=== PATIENT | male | born 1935 | race Caucasian/White ===

== ENCOUNTER 2020-05-02 10:08 | Inpatient (IN) | payer BC, OTHER ==
[~2020-05-02] VITALS: Ht 172.7 cm; Wt 75.4 kg
[2020-05-02 11:50] LABS: Basophils # (auto) 0 10 ^3/uL (0-0.2); Basophils % (auto) 0.6 % (0.0-2.0); Eosinophils # (auto) 0.2 10 ^3/uL (0-0.8); Eosinophils % (auto) 3.2 % (0.0-7.0); Hematocrit 43.2 % (41.0-53.0); Hemoglobin 14.1 g/dL (13.5-17.5); Lymphocytes # (auto) 0.9 10 ^3/uL (0.4-5.4); Lymphocytes % (auto) 13.4 % (10.0-50.0); Mean Corpuscular Hemoglobin 31.9 pg (28.0-32.0); Mean Corpuscular Hgb Conc. 32.6 g/dL (32.0-36.0); Mean Corpuscular Volume 97.8 fL (80.0-100.0); Monocytes # (auto) 0.4 10 ^3/uL (0-1.3); Neutrophils # (auto) 5.3 10 ^3/uL (1.6-8.6); Neutrophils % (auto) 76.8 % (37.0-80.0); Platelet Count (auto) 204 10^3/uL (140-450); Red Blood Cells 4.42 10^6/uL (4.5-5.90); Red Cell Distribution Width 16.6 % (11.8-14.3); White Blood Cell 6.8 10^3/uL (4.4-10.8)
[2020-05-02 11:55] LABS: INR 1.06 (0.9-1.15); Partial Thromboplastin Time 27.2 sec (23.0-31.2)
[2020-05-02 12:02] LABS: Albumin 3.1 g/dL (3.4-5.0); Calcium 8.9 mg/dL (8.5-10.1); Potassium 4.4 mmol/L (3.5-5.1)
[2020-05-02 12:06] LABS: BUN/Creatinine Ratio 10.4; Bilirubin, Total 0.6 mg/dL (0.2-1.0); Total Protein 6.7 g/dL (6.4-8.2)
[2020-05-02 14:39] LABS: Urine Bacteria NONE SEEN /hpf (None Seen); Urine Blood Negative /uL (Negative); Urine Specific Gravity 1.005 (1.001-1.035); Urine WBC <1 /hpf (0 - 3)
[2020-05-02] MEDS ORDERED: SODIUM CHLORIDE 0.9% 1,000 ML IV ONE (15:30)
[2020-05-02] MEDS ORDERED: MORPHINE SULF INJ 2 MG/ML SYRINGE 1ML IV PRN ×2 (15:30→15:45)
[2020-05-02] MEDS ORDERED: NITROGLYCERIN 0.4 MG SL TAB SL PRN (15:30)
[2020-05-02] MEDS ORDERED: ACETAMINOPHEN 500 MG TAB PO PRN (15:45)
[2020-05-02] MEDS ORDERED: HYDROcodone-ACET 5/325MG TAB PO PRN (15:45)
[2020-05-02] MEDS ORDERED: ONDANSETRON HCL 4 MG/2 ML VIAL IV PRN (15:45)
[2020-05-02] MEDS ORDERED: FAMOTIDINE (10MG/ML) 2ML VL IV ONE (16:15)
[2020-05-02] MEDS ORDERED: methylPREDNISolone SOD SUCC 125 MG/2 ML VL IV ONE (16:15)
[2020-05-02] MEDS ORDERED: diphenhdrAMINE HCL 50 MG/1 ML VL IV ONE (16:15)
[2020-05-02] MEDS ORDERED: GABA100C9 PO (18:33)
[2020-05-02] MEDS ORDERED: LOVA40TA72 PO (18:33)
[2020-05-02] MEDS ORDERED: OMEP20TA PO (18:33)
[2020-05-02] MEDS ORDERED: LEVO125T7 PO (18:33)
[2020-05-02] MEDS ORDERED: FAMO-12 PO (18:33)
[2020-05-02] MEDS ORDERED: METO25TA5 PO (18:33)
[2020-05-02] MEDS ORDERED: ZOLP12.569 PO (18:33)
[2020-05-02] MEDS ORDERED: LACT10PA2 PO (18:33)
[2020-05-02] MEDS ORDERED: AMIO200T33 PO (18:33)
[2020-05-02] MEDS: METOPROLOL TARTRATE 25 MG TAB PO SCH (21:43)
[2020-05-02 22:00] VITALS: BP 120/62
[2020-05-02] MEDS ORDERED: LORazepam 2MG/ML-1ML VIAL IV PRN (23:00)
[2020-05-03 05:00] VITALS: BP 99/60
[2020-05-03 06:30] LABS: Cholesterol 128 mg/dL (< 200)
[2020-05-03 06:33] LABS: HDL Cholesterol 45 mg/dL (40-59); LDL Cholesterol 72 mg/dL (< 100); Triglycerides 59 mg/dL (< 150)
[2020-05-03 09:00] VITALS: BP 122/57
[2020-05-03] MEDS ORDERED: IOHEXOL 300 MG/ML 100ML BOTTLE IJ ONE (09:15)
[2020-05-03] MEDS ORDERED: diphenhdrAMINE HCL 50 MG/1 ML VL IV ONE (09:45)
[2020-05-03] MEDS: FAMOTIDINE 20 MG TAB PO SCH (10:04)
[2020-05-03] MEDS: ASPirin 81 mg TAB PO SCH (10:05)
[2020-05-03] MEDS: METOPROLOL TARTRATE 25 MG TAB PO SCH ×2 (10:05→21:00)
[2020-05-03 13:00] VITALS: BP 118/57
[2020-05-03] MEDS ORDERED: ASPI81CH43 PO (14:29)
[2020-05-03 15:56] LABS: BUN/Creatinine Ratio 14.8; Calcium 8.5 mg/dL (8.5-10.1); Potassium 4.3 mmol/L (3.5-5.1)
[2020-05-03 17:00] VITALS: BP 136/66
[2020-05-03 20:00] VITALS: BP_SYST 110; BP_SYST 111; BP_SYST 118; BP_DIAS 55; BP_DIAS 61; BP_DIAS 62
[2020-05-03 22:00] VITALS: BP 110/56
[2020-05-03] MEDS ORDERED: ATORVASTATIN 20 MG TAB PO SCH (22:00)
[2020-05-04 05:00] VITALS: BP 125/63
[2020-05-04 08:00] VITALS: BP 101/95
[2020-05-04 09:00] VITALS: BP 101/45
[2020-05-04] MEDS: METOPROLOL TARTRATE 25 MG TAB PO SCH (10:00)
[2020-05-04] MEDS: FAMOTIDINE 20 MG TAB PO SCH (11:08)
[2020-05-04] MEDS: ASPirin 81 mg TAB PO SCH (11:08)
[2020-05-04 13:00] VITALS: BP 101/47
[2020-05-04 14:42] VITALS: BP 101/47
[2020-05-04] MEDS ORDERED: ATOR20TA50 PO (14:56)
== END 2020-05-04 16:00 | disposition home or self-care (01) | DRG 149 ==
LOC: ER 10:08 → EDBD 10:08 → TELE 10:09 → OBSVTOIN 10:09 → TELE-CENTR 17:29
PROVIDERS: ADMIT Nurse Practitioner Acute Care; ATTEND Internal Medicine
DX: R42 Dizziness and giddiness (principal); N17.0 Acute kidney failure with tubular necrosis; D68.59 Other primary thrombophilia; I42.9 Cardiomyopathy, unspecified; E44.1 Mild protein-calorie malnutrition; E03.9 Hypothyroidism, unspecified; N18.30 Chronic kidney disease, stage 3 unspecified; R91.1 Solitary pulmonary nodule; Z88.8 Allergy status to other drugs, medicaments and biological substances; Z91.013 Allergy to seafood; E78.5 Hyperlipidemia, unspecified; G89.29 Other chronic pain; I12.9 Hypertensive chronic kidney disease with stage 1 through stage 4 chronic kidney disease, or unspecified chronic kidney disease; I25.10 Atherosclerotic heart disease of native coronary artery without angina pectoris; I48.0 Paroxysmal atrial fibrillation; I70.0 Atherosclerosis of aorta; S80.211A Abrasion, right knee, initial encounter; Z79.899 Other long term (current) drug therapy; Z82.3 Family history of stroke; Z82.49 Family history of ischemic heart disease and other diseases of the circulatory system; Z79.82 Long term (current) use of aspirin; Z86.73 Personal history of transient ischemic attack (TIA), and cerebral infarction without residual deficits; Z95.1 Presence of aortocoronary bypass graft; W18.39XA Other fall on same level, initial encounter; Y93.89 Activity, other specified; Y92.89 Other specified places as the place of occurrence of the external cause; Y99.8 Other external cause status; Z68.24 Body mass index [BMI] 24.0-24.9, adult
CPT/HCPCS: 36415; 70450; 70551; 71045; 71260; 73562; 80048; 80053; 80061; 81001; 84443; 84484; 85025; 85610; 85730; 93005; 93306; 93886; 96374; 96375; 97110; 97116; 97163; G0378; J3490